=== PATIENT | male | born 1985 | race Caucasian/White ===

== ENCOUNTER 2018-05-12 05:08 | Emergency (ER) | payer OTHER ==
--- NOTE | 2018-05-12 05:32 | PDOC ---
History of Present Illness - General Chief Complaint: Eye Problem Stated Complaint: EYE PROBLEM - History of Present Illness Initial Comments: Anjel Lia is an otherwise healthy 32yo man who presents today with eyelid swelling. He reports that for the past week he has woken up every morning with swelling to his right lower and left upper eyelids. When he washes his face in the morning using soap and cold water, the swelling starts to go down right away. Throughout the day it continues to decrease and mostly resolves by the end of the day. He does have some pain similar to a bruise over the area of the swelling. He has no pain in his eye itself and no pain in the non-swelling eyelids. He denies any itching, eye drainage, or eye redness. He endorses some occasional blurry vision but no change from usual over the past week. He denies foreign body sensation. Mr Lai states that he has has some symptom relief with ice packs and acetaminophen. He has not tried any antihistamine. He is not aware of any new soaps, detergents, lotions, or any other new products. He does not have new sheets or pillows, nor does he have any new pets. He has no nasal congestion, rhinorrhea, or any other rash. He decided to present today because he felt the swelling was especially bad when he woke up this morning. Past History - Past Medical History Allergies/Adverse Reactions: Allergies Allergy/AdvReac Type Severity Reaction Status Date / Time No Known Allergies Allergy Verified 07/09/14 15:36 Home Medications: Ambulatory Orders Loratadine 10 mg PO DAILY #30 tablet 07/09/14 - Suicide/Smoking/Psychosocial Hx Smoking Status: Yes Smoking History: Current every day smoker Number of Cigarettes Smoked Daily: 5 'Breaking Loose' booklet given: 07/09/14 Hx Alcohol Use: No Review of Systems - Review of Systems Comments:: General: No fevers, no chills, no weight or appetite change, no malaise HEENT: No changes in vision, no changes in hearing, no congestion, no sore throat. +eyelid swelling CV: No chest pain, no palpitations, no LE edema Pulm: No SOB, no cough, no wheezing GI: No nausea or vomiting, no change in bowel habits, no melena : No frequency, no urgency, no dysuria Musc: No back pain, no joint swelling, no recent injury Skin: No rash, no lesions, no erythema Endo: No excessive thirst, no heat/cold intolerance Heme: No unusual bruising or bleeding, no swollen glands Neuro: No syncope, no numbness/tingling, no focal weakness Vasc: No claudication Psych: No recent change in mood, no SI or HI *Physical Exam - Physical Exam Comments: General: Comfortable, no acute distress Head/ears/neck/throat:MMM, voice normal, normal neck ROM, no LAD Eyes: Visible swelling and slight erythema to right lower eyelid and left upper eyelid. No bruising, no abrasion. Pupils equal and reactive. EOM intact, no pain with eye movement. Sclera anicteric and without injection or erythema. No drainage noted. No lesions. Cards: RRR Pulm: Comfortable on room air Abd: Soft, nontender, nondistended Ext: Atraumatic. No LE edema. ROM intact. Strength 5/5 and equal bilaterally Vasc: Extremities WWP. Palpable radial and pedal pulses bilaterally Skin: Normal color, no rashes or lesions Neuro: A&Ox3, CN grossly intact, normal speech, motor/sensory grossly intact and symmetric Psych: Mood appropriate to situation Medical Decision Making - Medical Decision Making 05/12/18 05:53 Anjel Lai is an otherwise healthy 32yo man who presents to the ED with right lower and left upper eyelid swelling for the past week. - The swelling is worst when he wakes up in the morning, suggestive of possible allergic reaction, but the swelling is very localized to the two eyelids only. He also does not have any associated symptoms such as rhinorrhea, rash, or itching. He has no new exposures. - No eye changes such as erythema, drainage, foreign body sensation, photophobia or change in vision to suggest any pathology or injury to the eye itself. The eyes and eyelids do not appear infected, and he does not appear to have any corneal injury - Discussed with Mr Lai. Plan to discharge home to follow up today with the eye clinic. Will also prescribe diphenhydramine for Mr Lai to try at home; will not give here as he will need to drive himself home. He understands and agrees to this plan. Seen and discussed with Dr Jiménez. Beth Hairston PGY1 *DC/Admit/Observation/Transfer Diagnosis at time of Disposition: Eyelid symptom - Discharge Dispostion Disposition: HOME Condition at time of disposition: Stable Decision to Admit order: No - Referrals Referrals: Reece Mchugh [Staff Physician] - - Patient Instructions Additional Instructions: Discharge Instructions: - You were seen in the ED for eyelid swelling. There does not seem to be any infection that is causing your symptoms - You may have an allergic reaction to something in your environment that is causing the swelling. You may try taking diphenhydramine (Benedryl) 25mg before bed to see if that relieves your symptoms - You may also try warm compresses (such as a washcloth with warmed water) applied as tolerated to your eyelids - Please follow up with the eye clinic today. You have been referred to Dr Mchugh. Call his office as soon as they open in the morning and schedule an appointment. - Post Discharge Activity
[2018-05-12 05:34] VITALS: BP 126/69; PULSE 75; TEMP 98.2; BMI 39.0
--- NOTE | 2018-05-12 05:56 | PDOC ---
Attending Attestation - Resident Resident Name: Beth Hairston - ED Attending Attestation I have performed the following: I have examined & evaluated the patient, The case was reviewed & discussed with the resident, I agree w/resident's findings & plan, Exceptions are as noted - HPI HPI: 05/12/18 05:48 32 M with no PMH presents to ED with eyelid swelling. Pt states that over the past week, he has noticed swelling in his L lower eyelid and R upper eyelid whenever he wakes up. Pt denies any pain in his eyes. Denies redness in or around his eyes. Denies blurred vision. Denies any rashes anywhere else. Denies swelling of his lips or tongue. Denies F/C. Denies any h/o allergic reactions. - Physicial Exam PE: 05/12/18 05:56 GENERAL: Awake, alert, and fully oriented, in no acute distress. HEAD: No signs of trauma EYES: + R upper lid and L lower lid with mild edema, no discharge, no erythema, PERRLA, EOMI, sclera anicteric, conjunctiva clear ENT: Auricles normal inspection, hearing grossly normal, nares patent, oropharynx clear without exudates. Moist mucosa NECK: Nontender, no stepoffs, Normal ROM, supple, no lymphadenopathy, JVD, or masses LUNGS: Breath sounds equal, clear to auscultation bilaterally. No wheezes, and no crackles HEART: Regular rate and rhythm, normal S1 and S2, no murmurs, rubs or gallops ABDOMEN: Soft, nontender, normoactive bowel sounds. No guarding, no rebound. No masses EXTREMITIES: Normal range of motion, no edema. No clubbing or cyanosis. No cords, erythema, or tenderness NEUROLOGICAL: Cranial nerves II through XII intact. 5/5 strength and sensation in all extremities, Normal speech, normal gait, normal cerebellar function SKIN: Warm, Dry, normal turgor, no rashes or lesions noted. - Medical Decision Making 05/12/18 05:57 32 M with mildly edematous eyelids bilaterally after awakening today. Pt notes that the swelling has already improved significantly since he awoke this morning. Possible mild allergic reaction, though pt without any other s/s of allergic reaction. Pt's exam not consistent with conjunctivitis, blepharitis, chalazion, or hordeolum. No evidence of preseptal cellulitis or orbital cellulitis either. - Warm compresses - F/u eye clinic Pt is well appearing, with normal vitals. Clinically stable for DC at this time. I discussed the physical exam findings, ancillary test results and final diagnoses with the patient. I answered all of the patient's questions. The patient was satisfied with the care received and felt comfortable with the discharge plan and treatment plan. The patient agrees to follow up with the primary care physician within 24-72 hours.
== END 2018-05-12 06:18 | disposition home or self-care (01) ==
LOC: JER 05:08
DX: H02.844 Edema of left upper eyelid (principal); H02.842 Edema of right lower eyelid
CPT/HCPCS: 99281-25

== ENCOUNTER 2020-09-19 06:25 | Emergency (ER) | payer OTHER ==
[2020-09-19 07:25] VITALS: BP 136/88; PULSE 78; TEMP 98.3; BMI 40.4
== END 2020-09-19 09:30 | disposition home or self-care (01) ==
LOC: JER 06:25
DX: M79.605 Pain in left leg (principal)
CPT/HCPCS: 93971-TC; 99284-25

== ENCOUNTER 2022-02-23 16:05 | Emergency (ER) | payer OTHER ==
[2022-02-23 16:12] VITALS: RESP 18; BMI 29.7
[2022-02-23] MEDS ORDERED: SODIUM CHLORIDE 0.9% 500 ML INFUS.BAG IV ONE (16:34)
[2022-02-23] MEDS ORDERED: ONDANSETRON 4 MG/2 ML VIAL IVPUSH ONE (16:34)
[2022-02-23] MEDS ORDERED: morphine CARPU-JECT 4 MG/1 ML DISP.SYRIN IVPUSH ONE ×2 (16:34→17:52)
[2022-02-23] MEDS ORDERED: morphine SULFATE 4 MG/ML VIAL ONE ×2 (16:39→17:57)
[2022-02-23] MEDS ORDERED: ONDANSETRON 4 MG/2 ML VIAL ONE (16:42)
[2022-02-23 17:56] LABS: BASO % 0.8 % (0-2.0); EOS % 1.8 % (0-4.5); HEMATOCRIT 45.2 % (35.4-49); HEMOGLOBIN 15.6 GM/dL (11.7-16.9); LYMPH % 31.7 % (8-40); MCH 30.3 pg (25.7-33.7); MCHC 34.5 g/dl (32.0-35.9); MEAN CELL VOLUME 87.8 fl (80-96); MEAN PLT VOLUME 7.2 fl (7.5-11.1); MONO % 6.1 % (3.8-10.2); NEUT % 59.6 % (42.8-82.8); PLATELET COUNT 356 10^3/uL (134-434); RBC 5.15 M/mm3 (4.00-5.60); RDW 13.5 % (11.9-15.9); WHITE BLOOD COUNT 10.2 K/mm3 (4.0-10.0)
[2022-02-23 17:57] LABS: VENOUS BASE EXCESS 2.2 mmol/L (-2-2); VENOUS O2 SATURATION 32.8 % (70-80); VENOUS PCO2 54.4 mmHg (38-52); VENOUS PH 7.348 (7.310-7.410)
[2022-02-23 18:05] LABS: ACTIVATED PTT 31.1 SECONDS (25.2-36.5); INR 1.05 (0.83-1.09); PROTHROMBIN TIME (PATIENT) 12.1 SEC (9.7-13.0)
[2022-02-23 18:12] LABS: CALCIUM 9.2 mg/dL (8.5-10.1)
[2022-02-23 18:13] LABS: ALBUMIN 4.2 g/dl (3.4-5.0); BLOOD UREA NITROGEN 15.3 mg/dL (7-18); MAGNESIUM 2.3 mg/dL (1.8-2.4)
[2022-02-23 18:16] LABS: CREATININE 1.1 mg/dL (0.55-1.3)
[2022-02-23 18:17] LABS: BILIRUBIN,TOTAL 0.4 mg/dL (0.2-1); TOT PROT 7.8 g/dl (6.4-8.2)
[2022-02-23 21:43] VITALS: BP 122/76; PULSE 78; TEMP 98.1
== END 2022-02-23 21:43 | disposition home or self-care (01) ==
LOC: JER 16:05
PROC: 3E033NZ Introduction of Analgesics, Hypnotics, Sedatives into Peripheral Vein, Percutaneous Approach (ICD-10-PCS; principal; 2022-02-23)
PROC: 3E033NZ Introduction of Analgesics, Hypnotics, Sedatives into Peripheral Vein, Percutaneous Approach (ICD-10-PCS; 2022-02-23)
PROC: 3E033GC Introduction of Other Therapeutic Substance into Peripheral Vein, Percutaneous Approach (ICD-10-PCS; 2022-02-23)
DX: R10.13 Epigastric pain (principal)
CPT/HCPCS: 36415; 71045-TC-FY; 74177-TC; 80053; 82803; 83605; 83690; 83735; 84484; 85025; 85610; 85730; 86850; 86900; 86901; 93005; 93010; 99291; 99292; C9803-CS; Q9967; U0003; U0005